=== PATIENT | male | born 1965 | race Caucasian/White ===

== ENCOUNTER 2025-07-11 10:01 | Emergency (ER) | payer OTHER ==
[~2025-07-11] VITALS: Ht 172.7 cm; Wt 91.6 kg
[2025-07-11] MEDS ORDERED: HYDROCODONE/APAP 10/325 1 TAB PO ONE (10:30)
[2025-07-11 11:00] VITALS: BP 114/62
[2025-07-11] MEDS ORDERED: HYDROCODON-ACE1 EAC8 PO (11:05)
[2025-07-11] MEDS ORDERED: ACETAMINOPHEN 500 MG TAB PO ONE (11:15)
== END 2025-07-11 11:20 | disposition short-term general hospital (02) ==
LOC: ED 10:01
DX: S92.325A Nondisplaced fracture of second metatarsal bone, left foot, initial encounter for closed fracture (principal); S92.335A Nondisplaced fracture of third metatarsal bone, left foot, initial encounter for closed fracture; S92.345A Nondisplaced fracture of fourth metatarsal bone, left foot, initial encounter for closed fracture; S92.512A Displaced fracture of proximal phalanx of left lesser toe(s), initial encounter for closed fracture; V80.010A Animal-rider injured by fall from or being thrown from horse in noncollision accident, initial encounter
CPT/HCPCS: 73630; 99284; A9270

== ENCOUNTER 2025-07-21 08:08 | Day surgery (SDC) | payer OTHER ==
[~2025-07-21] VITALS: Ht 172.7 cm; Wt 89.0 kg
[~2025-07-21 08:08] MED LIST: CEFAZOLIN SODIUM 2 GM in SODIUM CHLORIDE 0.9% 100 ML IV SCH; HYDROCODON-ACE1 EAC8 PO; IBLOOD GLUCOSE TEST STRIP 1 EA TEST VI PRN; LACTATED RINGER'S 1,000 ML IV SCH; LIDOCAINE HCL 1% 5 ML SDV INJ ONE
[2025-07-21 08:34] VITALS: BP 140/79
[2025-07-21] MEDS ORDERED: SODIUM CHLORIDE 0.9% 20 ML IV ONE (08:34)
[2025-07-21] MEDS ORDERED: LIDOCAINE HCL 2% 5 ML SDV ONE ×2 (08:34→09:14)
[2025-07-21] MEDS ORDERED: MIDAZOLAM HCL 2 MG/2 ML VIAL ONE (08:34)
[2025-07-21] MEDS ORDERED: Ropivacaine HCl 0.5% 30 ML VIAL ONE (08:34)
[2025-07-21] MEDS ORDERED: DEXAMETHASONE SOD PHOS 4 MG/ML VIAL ONE ×2 (08:34→09:17)
[2025-07-21] MEDS ORDERED: HYDROCODONE/ACETA 7.5/325 TAB PO PRN (09:00)
[2025-07-21] MEDS ORDERED: fentaNYL citrate 50 MCG/ML SDV IV PRN (09:30)
[2025-07-21] MEDS ORDERED: IBLOOD GLUCOSE TEST STRIP 1 EA TEST VI PRN (09:30)
[2025-07-21] MEDS ORDERED: KETOROLAC TROMETHAMINE 30 MG/ML VIAL IV PRN (09:30)
[2025-07-21] MEDS ORDERED: NALOXONE HCL 0.4 MG SYR IV PRN (09:30)
[2025-07-21] MEDS ORDERED: CELECOXIB200 MG PO (10:08)
[2025-07-21] MEDS ORDERED: HYDROCODON-ACE1 EA11 PO (10:08)
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
[2025-07-21 10:42] VITALS: BP 145/71
--- NOTE | 2025-07-21 10:46 | NUR ---
1040- PT ARRIVES FROM PACU. BREATHING IS EVEN AND UNLABORED. PT IS DROWSY BUT WAKES TO VERBAL STIMULI. LR INFUSING. PT DENIES PAIN AND NAUSEA. DISCHARGE CRITERIA DISCUSSED AND PT AND FAMILY ARE UNDERSTANDING. CALL LIGHT IN REACH. BED IS LOCKED IN THE LOWEST POSITION. PT IS GIVEN WATER PER REQUEST. ALL QUESTIONS AND CONCERNS ANSWERED.
[2025-07-21 11:46] VITALS: BP 115/77
[2025-07-21] MEDS ORDERED: TRANEXAMIC ACID IN NACL,ISO-OS 1,000 MG/100 ML PIGGYBACK IV SCH (12:00)
[2025-07-21] MEDS ORDERED: SEVOFLURANE 250 ML BTL INH ONE (12:05)
--- NOTE | 2025-07-21 12:10 | NUR ---
CALLED TO PTS ROOM BY PTS ASSIGNED NURSE. NOTED PTS DRS SATURATED IN BLOOD WITH MORE BLEEDING CONTINUING IN A STEADY STREAM. DIRECTED NURSE TO APPLY PRESSURE AND THIS RN CALLED DR. PADILLA FOR FURTHER ORDERS. REPORTED THE ABOVE TO DR. PADILLA AND RECEIVED VERBAL ORDERS TO REINFORCE WITH ABD PADS AND REWRAP WITH AMBIKA WRAP AND TO GIVE 2G TXA NOW. THE ABOVE DIRECTIONS RELAYED TO PTS RN AND ORDERS ENTERED INTO [facility] FOR TXA. BLEEDING HAS STOPPED AND TXA INFUSING.
[2025-07-21] MEDS ORDERED: TRANEXAMIC ACID IN NACL,ISO-OS 1,000 MG/100 ML PIGGYBACK IV ONE (12:15)
--- NOTE | 2025-07-21 12:17 | NUR ---
1140- PT IS RESTING IN HIS STRETCHER. VITAL SIGNS OBTAINED. PT DENIES PAIN AND NAUSEA. CALL LIGHT IN REACH. BED IS LOCKED IN THE LOWEST POSITION. PT IS AWAKE AND TALKING WITH RN. PT REPORTS SOME "TINGLING" FEELING IN HIS TOES ON THE LEFT OPERATIVE SIDE. DISCHARGE PAPERWORK GONE OVER AND EDUCATION GIVEN. ALL QUESTIONS AND CONCERNS ANSWERED. PT REQUESTING TO GET DRESSED TO GET UP AND ATTEMPT TO VOID. 1200- PT NOTIFIES RN THAT THERE IS SOME BLEEDING. UPON ENTERING THE ROOM PT IS SITING ON THE SIDE OF THE BED HALF WAY DRESSED WITH OPERATIVE FOOT BLEEDING LEAVING A SMALL PUDDLE ON THE FLOOR. RN APPLIED DIRECT PRESSURE AND CALLS FOR ASSISTANCE. OTHER RN'S ASSIST IN CALLING DR. PADILLA AND RECIEVING ORDERS. 1210- PT SURICAL SITE IS REDRESSED. BLEEDING HAS SLOWED DOWN SIGNIFICANTLY. PT FOOT IS ELEVATED ON PILLOWS. PT DENIES PAIN OR NAUSEA. TXA STARTED SEE EMAR. ICE PACK APPLIED. PT RESTING AND REPORTS NO DISCOMFORT. PT FAMILY STEPS OUT TO GET FOOD. 1225- PT REPORTS NEEDING TO USE THE RESTROOM BUT WILLING TO WAIT WITH MEDICATION AND BLEEDING THAT OCCURED. PT DENIES PAIN AND NAS[place]A. CALL LIGHT IN REACH. BED IS LOCKED IN THE LOWEST POSITION.
[2025-07-21 12:41] VITALS: BP 158/67
--- NOTE | 2025-07-21 12:43 | NUR ---
1240- PT IS RESTING IN STRETCHED WITH L FOOT ELEVATED. PT DENIES PAIN AND NAUSEA. CALL LIGHT IN REACH. BED IS LOCKED IN THE LOWEST POSITION. VSS. SURGICAL SITES SHOWS A SMALL AMOUNT OF RED DRAINAGE. PT RESTING COMFORABLY.
--- NOTE | 2025-07-21 13:59 | NUR ---
1310-PT REPORTS WANTING TO TRY AND USE THE RESTROOM. PT IS ABLE TO AMBULATE SAFELY WITH HIS CRUTCHES AND GET TO THE RESTROOM. PT VOIDS 450ML OF CLEAR YELLOW URINE. PT IS ABLE TO RETURN BACK TO ROOM SAFELY. DRESSING ASSESSED WITH NO VISIBLE BLEEDING THROUGH. 1320- PT GETTING DRESSED WITH RN AT BEDSIDE WITH MINIMAL ASSIST. IV REMOVED. PT DENIES PAIN AND NAUSEA. PT FAMILY RETURNS AND GRABS ALL BELONGINGS. PT IS ABLE TO TRANSFER TO HOSPITAL WHEELCHAIR WITH NO ISSUES. 1325- PT HAS EDUCATION AND PAPERWORK IN HAND AND IS PROPELLED OUT OF DAY SURGERY BY ANTONIA ESTRADA AT THIS TIME. ALL QUESTIONS AND CONCERNS ANSWERED.
[2025-07-21] MEDS ORDERED: CELECOXIB 200 MG CAP PO SCH (17:00)
--- NOTE | 2025-07-22 15:38 | OR ---
[facility] [address], [place] [address] Signed DATE OF OPERATION: 07/21/2025 SURGEON: Sammie Goetz MD PREOPERATIVE DIAGNOSIS: Right fifth metatarsal shaft fracture, P1 fracture dislocation. POSTOPERATIVE DIAGNOSIS: Right fifth metatarsal shaft fracture, P1 fracture dislocation. PROCEDURES PERFORMED: 1. Open reduction and internal fixation, right fifth metatarsal. 2. Closed reduction and percutaneous pinning, right fifth proximal phalanx. PRESSURE VESSEL INSPECTOR: None. ANESTHESIA: General. IMPLANTS: 4.0 x 52 Synthes headless screw and one K-wire. BRIEF HISTORY: Edith is a 59-year-old gentleman who injured his foot with the resultant fractures. Risks and benefits of operative treatment were discussed with him and he elected to proceed. DESCRIPTION OF PROCEDURE: Once consent was obtained, he was taken to the operating room. After adequate anesthesia, he was placed on operating room table on a hip bump. The leg was prepped and draped in a standard sterile fashion. The metatarsal shaft fracture was then reduced and crossclamped. The proximal fifth metatarsal was then approached through a standard longitudinal incision, carried through skin and subcutaneous tissue. The guidewire for the set was then advanced from the proximal metatarsal across the fracture and engaging the body distally. This took several passes. Once this was accomplished, it was measured and drilled. A fixed two headed headless screw was then placed over the guidewire and advanced until it was well flush with the tip of the metatarsal. Excellent bone purchase was obtained. The wound was copiously irrigated with normal saline, closed with kisha. Attention was then turned to the toe, which was closed Electronically Signed By: SAMMIE GOETZ MD 07/22/25 1538 PATIENT NAME: EDITH PATEL OPERATIVE REPORT DATE OF : 63 REPORT #: [id number] PHYSICIAN: SAMMIE GOETZ MD PCP: NO PRIMARY CARE PHYSICIAN REPORT IS CONFIDENTIAL AND NOT TO BE RELEASED WITHOUT AUTHORIZATION [facility] [address] [facility] [place] [address] Signed reduced as best we could get and a single 1.25 K-wire was advanced distally from the proximal into the phalanx across the MTP joint holding the toe in a reduced position. The pin was cut and a Jurgan ball was applied. The wounds were then cleansed and dressed with Allevyn, sterile gauze, and an Michael wrap. He was placed back into a fracture boot. He tolerated the procedure well. All sponge, needle, and instrument counts were correct. Sammie Goetz MD BA/THANHL /[id number] Copies: ~ Electronically Signed By: SAMMIE GOETZ MD 07/22/25 1538 PATIENT NAME: EDITH PATEL OPERATIVE REPORT DATE OF : 63 REPORT #: [id number] PHYSICIAN: SAMMIE GOETZ MD PCP: NO PRIMARY CARE PHYSICIAN REPORT IS CONFIDENTIAL AND NOT TO BE RELEASED WITHOUT AUTHORIZATION
== END 2025-07-21 13:25 | disposition home or self-care (01) ==
LOC: DS 08:08
PROVIDERS: ATTEND Specialist
PROC: 0SS Lower Joints, Reposition (ICD-10-PCS; 2025-07-21)
PROC: 3E0T3BZ Introduction of Anesthetic Agent into Peripheral Nerves and Plexi, Percutaneous Approach (ICD-10-PCS; 2025-07-21)
PROC: 0QSN04Z Reposition Right Metatarsal with Internal Fixation Device, Open Approach (ICD-10-PCS; principal; 2025-07-21 10:15)
DX: S92.351A Displaced fracture of fifth metatarsal bone, right foot, initial encounter for closed fracture (principal); S93.114A Dislocation of interphalangeal joint of right lesser toe(s), initial encounter; V80.010A Animal-rider injured by fall from or being thrown from horse in noncollision accident, initial encounter
CPT/HCPCS: 01480; 73620; J0688; J1100; J2003; J2250; J2405; J2704; J2795; J7121